=== PATIENT | male | born 1960 | race Two or more races ===

== ENCOUNTER 2025-08-25 21:26 | Emergency (ER) | payer MEDICAID, OTHER ==
[~2025-08-25] VITALS: Ht 170.2 cm; Wt 68.0 kg
[2025-08-25 22:37] LABS: CALCIUM, SERUM 8.9 mg/dL (8.5-10.1); CREATININE 0.7 mg/dL (0.6-1.3); SODIUM SERUM 137 mmol/L (136-145); UREA NITROGEN, BLOOD 13 mg/dL (7-18)
[2025-08-25 22:44] LABS: PLATELET COUNT (AUTO) 326 K/uL (150-450); RED BLOOD CELL COUNT(AUTO) 3.62 MIL/uL (4.5-6.0); RED CELL DISTRIBUTION WIDTH 16.0 % (11.5-15.0); WHITE BLOOD COUNT (AUTO) 2.2 K/uL (4.3-11.0)
[2025-08-25 23:01] LABS: APPEARANCE,URINE CLEAR (CLEAR); BLOOD, URINE TRACE-INTA Ery/uL (NEGATIVE); LEUKOCYTE ESTERASE ,URINE NEGATIVE (NEGATIVE); NITRITE, URINE NEGATIVE (NEGATIVE); UGLUCOSE NEGATIVE (NEGATIVE)
[2025-08-25 23:04] LABS: ADD URINE CULTURE NO; HYALINE CASTS, URINE Rare /LPF (None Seen); SQUAMOUS EPITHELIAL CELL,UR Rare /HPF (None Seen)
[2025-08-25 23:14] LABS: AMPHETAMINE, URINE NEGATIVE (NEGATIVE); BARBITURATE, URINE NEGATIVE (NEGATIVE); BENZODIAZEPINE, URINE NEGATIVE (NEGATIVE); COCCAINE, URINE NEGATIVE (NEGATIVE); OPIATE, URINE NEGATIVE (NEGATIVE)
[2025-08-25 23:15] LABS: CANNABINOID, URINE POSITIVE (NEGATIVE)
[2025-08-26 00:13] LABS: ALCOHOL, BLOOD < 3 mg/dL (0-10)
[2025-08-26] MEDS ORDERED: ASPIRIN 325 MG TABLET ONE (00:29)
[2025-08-26] MEDS: ASPIRIN EC 325 MG TABLET.DR PO ONE (00:32)
[2025-08-26 08:08] VITALS: BP 128/78; TEMP 98; O2SAT 97
== END 2025-08-26 08:03 ==
LOC: ER 21:32
DX: R45.851 Suicidal ideations (principal); R05.9 Cough, unspecified; R07.89 Other chest pain; J45.909 Unspecified asthma, uncomplicated; E11.9 Type 2 diabetes mellitus without complications; F19.10 Other psychoactive substance abuse, uncomplicated; Z59.00 Homelessness unspecified; Z79.899 Other long term (current) drug therapy; Z20.822 Contact with and (suspected) exposure to COVID-19
CPT/HCPCS: 36415; 71045-TC; 80048-TC; 81001; 84484-TC; 85025-TC; G0480